=== PATIENT | male | born 1965 | race Hispanic/Latino ===

== ENCOUNTER 2020-01-04 11:21 | Inpatient (IN) | payer SELFPAY ==
[~2020-01-04] VITALS: Ht 165.1 cm; Wt 125.1 kg
[2020-01-04] VITALS (10 sets, daily range): BP systolic 127–164; BP diastolic 71–89
[2020-01-04] MEDS ORDERED: ASPIRIN 325 MG TABLET ONE ×3 (11:24→11:34)
[2020-01-04] MEDS ORDERED: METOPROLOL TARTRATE 1 MG/ML 5ML VIAL IV ONE ×3 (11:35→13:09)
[2020-01-04] MEDS ORDERED: HEPARIN SODIUM 5000UNIT/ML 1ML VIAL ONE (11:35)
[2020-01-04] MEDS ORDERED: DiphenhydrAMINE HCL 50 MG/ML VIAL ONE (12:00)
[2020-01-04] MEDS ORDERED: BIVALIRUDIN 250 MG/VIAL IV ONE (12:00)
[2020-01-04 12:01] LABS: BASOPHILS % (AUTO) 0.3 % (0.0-5.0); EOSINOPHILS % (AUTO) 1.1 % (0.0-8.0); HEMATOCRIT 47.5 % (42-54); LYMPHOCYTES % (AUTO) 35.8 % (21.0-51.0); MEAN CORPUSCULAR HEMOGLOBIN 32.3 pg (27.0-33.0); MEAN CORPUSCULAR HGB CONC 33.7 g/dL (32.0-36.0); MEAN CORPUSCULAR VOLUME 95.8 fL (79-99); MONOCYTES % (AUTO) 6.7 % (3.0-13.0); NEUTROPHILS % (AUTO) 55.7 % (40.0-77.0); PLATELET COUNT (AUTO) 163 K/uL (130-400); RED BLOOD CELL COUNT(AUTO) 4.96 MIL/uL (4.50-6.20); RED CELL DISTRIBUTION WIDTH 12.4 % (11.0-15.5); WHITE BLOOD COUNT (AUTO) 11.3 K/uL (4.8-10.8)
[2020-01-04] MEDS ORDERED: DOPAMINE HCL 400 MG/D5%-WATER 0 ML IV ONE (12:01)
[2020-01-04] MEDS ORDERED: NITROGLYCERIN 2 MG/VIAL VIAL IV ONE ×2 (12:01→12:54)
[2020-01-04] MEDS ORDERED: LIDOCAINE HCL 2% 20ML ONE (12:01)
[2020-01-04] MEDS ORDERED: FENTANYL CITRATE PF 50 MCG/1 ML 2ML VIAL ONE (12:01)
[2020-01-04] MEDS ORDERED: MIDAZOLAM HCL 1 MG/ML 2ML VIAL ONE (12:01)
[2020-01-04] MEDS ORDERED: IOHEXOL 350 MG/ML 100ML INFUS..BTL IV ONE (12:02)
[2020-01-04] MEDS ORDERED: LIDOCAINE PF 2% 5ML ABBOJECT ONE (12:02)
[2020-01-04] MEDS ORDERED: ATROPINE SULFATE 0.1 MG/ML 10 ML SYG IVP ONE (12:02)
[2020-01-04 12:13] LABS: INR 0.99 (0.85-1.15); PROTHROMBIN TIME 10.7 SEC (9.6-11.6)
[2020-01-04 12:16] LABS: ALBUMIN 3.9 g/dL (3.5-5.0); BILIRUBIN,TOTAL 0.8 mg/dL (0.2-1.0); CREATININE 1.6 mg/dL (0.5-1.5); POTASSIUM 3.8 mmol/L (3.5-5.1)
[2020-01-04] MEDS ORDERED: IOHEXOL-350 50ML VIAL IV ONE (12:59)
[2020-01-04] MEDS ORDERED: TICAGRELOR 90 MG TABLET ONE (13:03)
[2020-01-04] MEDS ORDERED: DEXTROSE 50%-WATER 50 ML DISP.SYRIN IV PRN (14:00)
[2020-01-04] MEDS ORDERED: HYDRALAZINE HCL 20 MG/ML VIAL IV PRN (14:00)
[2020-01-04] MEDS ORDERED: GLUCAGON 1MG KIT 1 MG ML IM PRN (14:00)
[2020-01-04 16:15] LABS: HEMOGLOBIN A1C 6.5 % (4.0-6.0)
[2020-01-04] MEDS: INSULIN HUMULIN R 100 UNIT/ML 3ML SQ SCH ×2 (16:30→20:38)
[2020-01-04] MEDS: METOPROLOL TARTRATE 25 MG TAB PO SCH (19:46)
[2020-01-04] MEDS: TICAGRELOR 90 MG TABLET PO SCH (19:46)
[2020-01-05] VITALS (10 sets, daily range): BP systolic 130–158; BP diastolic 75–90
[2020-01-05 03:39] LABS: BASOPHILS % (AUTO) 0.3 % (0.0-5.0); EOSINOPHILS % (AUTO) 0.6 % (0.0-8.0); HEMATOCRIT 45.4 % (42-54); LYMPHOCYTES % (AUTO) 21.3 % (21.0-51.0); MEAN CORPUSCULAR HEMOGLOBIN 31.6 pg (27.0-33.0); MEAN CORPUSCULAR VOLUME 95.6 fL (79-99); MONOCYTES % (AUTO) 8.8 % (3.0-13.0); NEUTROPHILS % (AUTO) 68.6 % (40.0-77.0); PLATELET COUNT (AUTO) 140 K/uL (130-400); RED BLOOD CELL COUNT(AUTO) 4.75 MIL/uL (4.50-6.20); RED CELL DISTRIBUTION WIDTH 12.5 % (11.0-15.5); WHITE BLOOD COUNT (AUTO) 12.6 K/uL (4.8-10.8)
[2020-01-05 03:56] LABS: CREATININE 0.9 mg/dL (0.5-1.5); POTASSIUM 3.7 mmol/L (3.5-5.1)
[2020-01-05] MEDS: INSULIN HUMULIN R 100 UNIT/ML 3ML SQ SCH ×2 (05:45→11:17)
[2020-01-05] MEDS: METOPROLOL TARTRATE 25 MG TAB PO SCH (08:42)
[2020-01-05] MEDS: TICAGRELOR 90 MG TABLET PO SCH (08:42)
[2020-01-05] MEDS ORDERED: ASPIRIN 81MG TAB.CHEW PO SCH (09:00)
[2020-01-05] MEDS ORDERED: LISINOPRIL 10 MG TABLET PO SCH (09:00)
[2020-01-05] MEDS ORDERED: LISI10TA7 PO (17:02)
[2020-01-05] MEDS ORDERED: METO25 PO (17:02)
[2020-01-05] MEDS ORDERED: TICA90TA PO (17:02)
[2020-01-05] MEDS ORDERED: ATOR40TA69 PO (17:02)
[2020-01-05] MEDS ORDERED: ASPI-1005 PO (17:02)
--- NOTE | 2020-01-05 17:45 | NUR ---
DISCHARGE EDUCATION DONE WITH PATIENT ABOUT POST STEMI CARE, MEDICATIONS, DIET. ALL QUESTIONS ANSWERED, PATIENT GIVEN GOODRX AND BRILITNA CARDS. ALL QUESTIONS ANSWERED.
--- NOTE | 2020-01-05 18:03 | NUR ---
PIV REMOVED, CATHETERS INTACT, DRESSINGS APPLIED. PATIENT TAKEN TO PRIVATE CARE VIA WHEELCHAIR WITH ALL BELONGINGS AND DISCHARGE INFORMATION.
[2020-01-05] MEDS ORDERED: ATORVASTATIN CALCIUM 40 MG TABLET PO SCH (21:00)
== END 2020-01-05 18:05 | disposition home or self-care (01) | DRG 247 ==
LOC: EDH 11:21 → EDHIP 11:22 → DAHIP 15:21
PROVIDERS: ADMIT Internal Medicine; ATTEND Internal Medicine
PROC: B2111ZZ Fluoroscopy of Multiple Coronary Arteries using Low Osmolar Contrast (ICD-10-PCS; principal; 2020-01-04)
PROC: 027034Z Dilation of Coronary Artery, One Artery with Drug-eluting Intraluminal Device, Percutaneous Approach (ICD-10-PCS; 2020-01-04)
PROC: 02C03ZZ Extirpation of Matter from Coronary Artery, One Artery, Percutaneous Approach (ICD-10-PCS; 2020-01-04)
PROC: B2151ZZ Fluoroscopy of Left Heart using Low Osmolar Contrast (ICD-10-PCS; 2020-01-04)
PROC: 4A023N7 Measurement of Cardiac Sampling and Pressure, Left Heart, Percutaneous Approach (ICD-10-PCS; 2020-01-04)
DX: I21.09 ST elevation (STEMI) myocardial infarction involving other coronary artery of anterior wall (principal); Z68.42 Body mass index [BMI] 45.0-49.9, adult; N17.9 Acute kidney failure, unspecified; D72.829 Elevated white blood cell count, unspecified; E11.9 Type 2 diabetes mellitus without complications; E66.9 Obesity, unspecified; I10 Essential (primary) hypertension; I25.10 Atherosclerotic heart disease of native coronary artery without angina pectoris; Z91.14 Patient's other noncompliance with medication regimen
CPT/HCPCS: 36415; 71045; 80048; 80053; 80061; 82550; 82948; 83036; 83874; 84484; 85025; 85610; 85730; 93005; 93306; 93356; 93458; 99156; 99157; C1725; C1760; C1769; C1887; C1894; C9600; G0378; J0360; J0461; J0583; J1200; J1265; J1644; J2001; J2250; J3010; J3490; Q9967